=== PATIENT | female | born 2000 | race Hispanic/Latino ===

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

== ENCOUNTER 2025-01-15 10:07 | Outpatient (CLI) | payer BC | END 2025-01-15 10:08 | disposition home or self-care (01) | LOC: MADLAB 10:07 → MADRAD 10:08 | PROVIDERS: ATTEND Physician Assistant | DX: R10.84 Generalized abdominal pain (principal) | CPT/HCPCS: 74018 ==